=== PATIENT | female | born 1965 | race Caucasian/White ===

== ENCOUNTER 2016-12-10 10:30 | Emergency (ER) | payer OTHER ==
[2016-12-10 11:44] VITALS: BP 117/64
== END 2016-12-10 11:44 | disposition home or self-care (01) ==
LOC: ED 10:30
DX: S00.86XA Insect bite (nonvenomous) of other part of head, initial encounter (principal); S00.82XA Blister (nonthermal) of other part of head, initial encounter; W57.XXXA Bitten or stung by nonvenomous insect and other nonvenomous arthropods, initial encounter; Y93.89 Activity, other specified; Y99.8 Other external cause status; Y92.89 Other specified places as the place of occurrence of the external cause

== ENCOUNTER 2019-10-01 06:49 | Observation (INO) | payer OTHER ==
[~2019-10-01] VITALS: Ht 160 cm; Wt 79.4 kg
[2019-10-01 06:54] VITALS: Ht 160 cm; Wt 79.4 kg
[2019-10-01 07:44] LABS: BASOPHIL % 0.4 % (0-2); PLATELET COUNT 149 x10^3mcL (130-400)
[2019-10-01 07:49] LABS: CALCIUM 9.2 mg/dL (8.5-10.1); CARBON DIOXIDE 29.2 mmol/L (21-32); CHLORIDE SERUM 106 mmol/L (98-107); CREATININE SERUM 0.7 mg/dL (0.6-1.0); GFR1 > 60 mL/min; GLUCOSE SERUM 121 mg/dL (74-106); POTASSIUM SERUM 3.7 mmol/L (3.5-5.1); SODIUM SERUM 142 mmol/L (136-145)
[2019-10-01 07:54] LABS: ALKALINE PHOSPHATASE 92 U/L (46-116); ALT/SGPT 75 U/L (14-59); AST/SGOT 22 U/L (15-37); BILIRUBIN TOTAL 0.6 mg/dL (0.20-1.00); TOTAL PROTEIN, SERUM 7.6 g/dL (6.4-8.2)
[2019-10-01] MEDS ORDERED: NORCO1 TA2 PO (10:28)
[2019-10-01 13:18] VITALS: BP 128/70
[2019-10-01 13:21] VITALS: BP 115/61
[2019-10-01 16:36] VITALS: BP 115/61
== END 2019-10-01 18:05 | disposition home or self-care (01) ==
LOC: ED 06:49 → DU 10:23
PROVIDERS: Emergency Medicine; ADMIT Hospitalist
DX: R07.89 Other chest pain (principal); I10 Essential (primary) hypertension
CPT/HCPCS: 83880; G0378; J1885; J7030; Q0092